=== PATIENT | female | born 1970 ===

== ENCOUNTER → 2018-04-14 21:27 | Outpatient (REF) | payer OTHER, SELFPAY ==
[2018-04-14 22:03] LABS: Add Manual Diff / Slide Review NO; Alanine Aminotransferase 30 IU/L (9-52); Albumin 4.6 g/dL (3.5-5.0); Albumin Globulin Ratio 1.7 (1.0-2.8); Alkaline Phosphatase 62 U/L (38-126); Aspartate Aminotransferase 37 IU/L (14-36); Basophils Percent Auto 0.5 % (0-2); Bilirubin Total 0.4 mg/dL (0.2-1.3); Blood Urea Nitrogen 23 mg/dL (7-17); Calcium 10.2 mg/dL (8.4-10.2); Carbon Dioxide 28 mmol/L (22-32); Chloride 99 mmol/L (98-107); Eosinophils Percent Auto 1.7 % (2-4); Globulin 2.7 g/dL (1.7-4.1); Glucose 102 mg/dL (70-100); HEMOLYSIS < 15 (0-50); Hematocrit 41.8 % (36-46); Hemoglobin 14.1 g/dL (12.0-16.0); Lymphocytes Percent Auto 23.3 % (25-40); Mean Corpuscular HGB Conc 33.8 % (30-36); Mean Corpuscular Hemoglobin 30.5 PG (26-34); Mean Corpuscular Volume 90.1 fL (80-100); Monocytes Percent Auto 5.6 % (3-14); Neutrophils Absolute Auto 5400 /uL (3000-5900); Neutrophils Percent Auto 68.9 % (50-75); Phosphorous 3.8 mg/dL (2.5-4.5); Platelet Count 313 X10^3/uL (150-400); Potassium 4.4 mmol/L (3.4-5.1); Red Blood Cell Count 4.63 X10^6/uL (4.0-5.2); Red Cell Distribution Width 13.7 % (11.6-14.8); Sodium 141 mmol/L (137-145); Total Protein 7.3 g/dL (6.3-8.2); White Blood Cell Count 7.9 X10^3/uL (4.5-11.0)
[2018-04-14 22:19] LABS: Free T3, Triiodothyronine Free 3.76 pg/mL (2.77-5.27); Free T4, Direct Thyroxine 0.77 ng/dL (0.78-2.19)
[2018-04-14 22:32] LABS: Thyroid Stimulating Hormone 1.71 uIU/mL (0.47-4.68)
[2018-04-16 15:45] LABS: Triiodothyronine T3 Total 117 ng/dL (76-181)
[2018-04-16 16:10] LABS: Anti Thyroglobulin Antibody 1 IU/mL (< 2); Thyroid Peroxidase Antibodies 5 IU/mL (< 9)
== END ==
LOC: LAB 21:27
PROVIDERS: Visit Provider Naturopath
DX: E03.9 Hypothyroidism, unspecified (principal); Q61.3 Polycystic kidney, unspecified
CPT/HCPCS: 80053; 80069; 84439; 84443; 84480; 84481; 85025; 86376; 86800

== ENCOUNTER → 2018-08-15 01:18 | Outpatient (REF) | payer OTHER, SELFPAY ==
[2018-08-15 03:17] LABS: Alanine Aminotransferase 34 IU/L (9-52); Albumin 4.3 g/dL (3.5-5.0); Albumin Globulin Ratio 1.4 (1.0-2.8); Alkaline Phosphatase 55 U/L (38-126); Aspartate Aminotransferase 27 IU/L (14-36); BUN Creatinine Ratio 23.6 (6-22); Bilirubin Total 0.4 mg/dL (0.2-1.3); Blood Urea Nitrogen 26 mg/dL (7-17); Calcium 9.3 mg/dL (8.4-10.2); Carbon Dioxide 27 mmol/L (22-32); Chloride 101 mmol/L (98-107); Estimated Glomerular Filt Rate 53.5 mL/min (>60); Glucose 111 mg/dL (70-100); HEMOLYSIS < 15 (0-50); Potassium 4.8 mmol/L (3.4-5.1); Sodium 137 mmol/L (137-145); Total Protein 7.3 g/dL (6.3-8.2)
[2018-08-15 03:55] LABS: Thyroid Stimulating Hormone 0.69 uIU/mL (0.47-4.68)
[2018-08-18 16:38] LABS: Triiodothyronine T3 Total 83 ng/dL (76-181)
== END ==
LOC: LAB 01:18
PROVIDERS: Visit Provider Naturopath
DX: E03.9 Hypothyroidism, unspecified (principal)
CPT/HCPCS: 36415; 80053; 84439; 84443; 84480; 84481

== ENCOUNTER → 2018-09-22 21:14 | Outpatient (REF) | payer BC, SELFPAY ==
[2018-09-22 22:21] LABS: Add Manual Diff / Slide Review NO; Basophils Absolute Auto 0 /uL (0-100); Basophils Percent Auto 0.6 % (0-2); Eosinophils Absolute Auto 100 /uL (0-450); Eosinophils Percent Auto 1.6 % (2-4); Hematocrit 40.2 % (36-46); Hemoglobin 13.7 g/dL (12.0-16.0); Lymphocytes Absolute Auto 1200 /uL (1100-4500); Lymphocytes Percent Auto 24.4 % (25-40); Mean Corpuscular Hemoglobin 30.3 PG (26-34); Mean Corpuscular Volume 89.2 fL (80-100); Monocytes Absolute Auto 300 /uL (0-900); Monocytes Percent Auto 5.5 % (3-14); Neutrophils Absolute Auto 3300 /uL (1500-7000); Neutrophils Percent Auto 67.9 % (50-75); Platelet Count 282 X10^3/uL (150-400); Red Cell Distribution Width 13.3 % (11.6-14.8); White Blood Cell Count 4.8 X10^3/uL (4.5-11.0)
[2018-09-22 22:34] LABS: Alanine Aminotransferase 30 IU/L (9-52); Albumin 4.6 g/dL (3.5-5.0); Albumin Globulin Ratio 1.6 (1.0-2.8); Alkaline Phosphatase 53 U/L (38-126); Aspartate Aminotransferase 30 IU/L (14-36); Bilirubin Total 0.5 mg/dL (0.2-1.3); Blood Urea Nitrogen 20 mg/dL (7-17); Carbon Dioxide 26 mmol/L (22-32); Chloride 102 mmol/L (98-107); Estimated Glomerular Filt Rate 59.7 mL/min (>60); Globulin 2.8 g/dL (1.7-4.1); Glucose 101 mg/dL (70-100); HEMOLYSIS < 15 (0-50); Potassium 4.3 mmol/L (3.4-5.1); Sodium 138 mmol/L (137-145); Total Protein 7.4 g/dL (6.3-8.2)
[2018-09-22 22:45] LABS: Free T3, Triiodothyronine Free 4.42 pg/mL (2.77-5.27); Free T4, Direct Thyroxine 2.29 ng/dL (0.78-2.19)
[2018-09-22 22:58] LABS: Thyroid Stimulating Hormone 0.04 uIU/mL (0.47-4.68)
[2018-09-22 23:05] LABS: Ferritin 9.6 ng/mL (6.27-137)
[2018-09-23 04:38] LABS: Appearance Urine UA Clear; Color Urine UA Yellow; Glucose Urine UA NEGATIVE (Negative); Ketones Urine UA NEGATIVE (NEGATIVE); Occult Blood Urine UA Negative (Negative); Protein Urine UA Negative (Negative); Specific Gravity Urine UA 1.015 (1.000-1.035)
[2018-09-23 04:39] LABS: Bilirubin Urine UA Negative (NEGATIVE); Leukocyte Esterase Urine UA NEGATIVE (NEGATIVE); Nitrite Urine UA NEGATIVE (Negative); Urobilinogen Urine UA 0.2 E.U./dL (0.2)
[2018-09-23 05:44] LABS: Culture Indicated Urine Cult Not Indicated; Squamous Epithelial Cell Urine 0-1 /HPF (0-5/HPF)
[2018-09-25 16:46] LABS: Thyroid Peroxidase Antibodies 3 IU/mL (< 9)
[2018-09-25 16:47] LABS: Anti Thyroglobulin Antibody 1 IU/mL (< 2); Thyroid Peroxidase Antibodies 4 IU/mL (< 9)
== END ==
LOC: LAB 21:14
PROVIDERS: Visit Provider Naturopath
DX: R53.83 Other fatigue (principal); E03.9 Hypothyroidism, unspecified; Q61.9 Cystic kidney disease, unspecified
CPT/HCPCS: 36415; 80053; 81001; 82728; 84439; 84443; 84481; 85025; 86376; 86800

== ENCOUNTER → 2018-09-22 21:34 | Outpatient (REF) | payer OTHER, SELFPAY | LOC: LAB 21:34 | PROVIDERS: Visit Provider Naturopath | DX: Q61.9 Cystic kidney disease, unspecified (principal); R53.83 Other fatigue; E03.9 Hypothyroidism, unspecified | CPT/HCPCS: 36415; 80053; 81001; 82728; 84439; 84443; 84481; 85025; 86376; 86800 ==